=== PATIENT | female | born 1985 ===

== ENCOUNTER 2019-12-21 21:53 | Observation (INO) ==
[2019-12-21] MEDS ORDERED: ENOXAPARIN 100 MG/ML SYRINGE SUBCUT STA (22:40)
[2019-12-21 23:34] LABS: Basophils # 0.1 10*3/uL (0.0-0.2); Basophils % 0.5 % (0.0-0.8); Eosinophils # 0.2 10*3/uL (0.0-0.87); Eosinophils % 1.8 % (0.00-10.9); Hematocrit 43.7 VOL% (35.7-47.0); Hemoglobin 14.4 GM/DL (12.0-16.0); Immature Granulocytes % 0.7 %; Immature Granulocytes Absolute 0.07 #; Lymphocytes # 2.1 10*3/uL (1.4-4.0); Lymphocytes % 19.8 % (21.3-54.2); Mean Corpuscular Volume 91.2 FL (87-102); Mean Platelet Volume 9.5 FL (9.6-12.0); Monocytes % 8.2 % (1.7-12.7); Platelet Count 300 T/CUMM (130-400); Red Blood Count 4.79 MC/CUMM (3.8-5.5); White Blood Count 10.7 T/CUMM (4-12)
[2019-12-21 23:51] LABS: Albumin 3.4 G/DL (3.4-5.0); Bilirubin,Total 0.4 MG/DL (0.2-1.0); Calcium 8.9 MG/DL (8.5-10.1); Osmolality,Calculated 276.5 MOS/KG (273-304); Total Protein 7.9 G/DL (6.4-8.3)
[2019-12-22] MEDS ORDERED: DEXTROSE 50% 25 GM/50 ML VIAL IV PRN (00:46)
[2019-12-22] MEDS ORDERED: ACETAMINOPHEN 325 MG TABLET PO PRN (00:46)
[2019-12-22] MEDS ORDERED: ONDANSETRON 4 MG/2 ML VIAL IV PRN (00:46)
[2019-12-22] MEDS ORDERED: GLUCAGON 1 MG VIAL IM PRN (00:46)
[2019-12-22 05:55] LABS: Basophils % 0.3 % (0.0-0.8); Eosinophils # 0.1 10*3/uL (0.0-0.87); Eosinophils % 1.1 % (0.00-10.9); Hematocrit 39.8 VOL% (35.7-47.0); Hemoglobin 13.6 GM/DL (12.0-16.0); Immature Granulocytes % 0.7 %; Immature Granulocytes Absolute 0.07 #; Lymphocytes # 1.8 10*3/uL (1.4-4.0); Lymphocytes % 17.4 % (21.3-54.2); Mean Corpuscular HGB Conc 34.2 GM/DL (32-36); Mean Platelet Volume 10.2 FL (9.6-12.0); Neutrophils % 72.5 % (38.7-73.9); Platelet Count 270 T/CUMM (130-400); Red Blood Count 4.42 MC/CUMM (3.8-5.5); White Blood Count 10.3 T/CUMM (4-12)
[2019-12-22 06:06] LABS: Calcium 8.7 MG/DL (8.5-10.1); Osmolality,Calculated 275.7 MOS/KG (273-304)
[2019-12-22] MEDS ORDERED: PANTOPRAZOLE 40 MG TABLET PO SCH (09:00)
[2019-12-22] MEDS ORDERED: APIXABAN 5 MG TABLET PO SCH (09:00)
[2019-12-22 09:08] VITALS: BP 107/71
== END 2019-12-22 12:15 | disposition home or self-care (01) ==
LOC: N.ED 21:53 → N.EDINP 21:53 → N.3E 12-22 03:06
PROVIDERS: ADMIT Internal Medicine; ATTEND Internal Medicine